=== PATIENT | female | born 1970 | race Caucasian/White ===

== ENCOUNTER 2017-07-14 21:02 | Emergency (ER) | payer OTHER ==
[~2017-07-14] VITALS: Ht 170.2 cm; Wt 82.1 kg
[2017-07-14 21:06] VITALS: Ht 170.2 cm; Wt 82.1 kg
[2017-07-14 23:15] VITALS: BP 127/74
== END 2017-07-14 23:15 | disposition home or self-care (01) ==
LOC: ED 21:02
DX: S39.012A Strain of muscle, fascia and tendon of lower back, initial encounter (principal); S29.012A Strain of muscle and tendon of back wall of thorax, initial encounter; X58.XXXA Exposure to other specified factors, initial encounter; Y93.89 Activity, other specified; Y92.89 Other specified places as the place of occurrence of the external cause; Y99.8 Other external cause status
CPT/HCPCS: J1885

== ENCOUNTER 2017-07-17 23:33 | Emergency (ER) | payer OTHER ==
[~2017-07-17] VITALS: Ht 170.2 cm; Wt 55.8 kg
[2017-07-17 23:38] VITALS: Ht 170.2 cm; Wt 55.8 kg
[2017-07-18 04:45] VITALS: BP 136/78
== END 2017-07-18 04:45 | disposition home or self-care (01) ==
LOC: ED 23:33
DX: B02.9 Zoster without complications (principal); R07.89 Other chest pain; Z88.0 Allergy status to penicillin
CPT/HCPCS: J1885

== ENCOUNTER 2017-07-19 04:17 | Emergency (ER) | payer OTHER ==
[~2017-07-19] VITALS: Ht 170.2 cm; Wt 83.5 kg
[2017-07-19 04:26] VITALS: Ht 170.2 cm; Wt 83.5 kg
[2017-07-19 05:09] VITALS: BP 168/93
== END 2017-07-19 05:09 | disposition home or self-care (01) ==
LOC: ED 04:17
DX: B02.8 Zoster with other complications (principal); G47.9 Sleep disorder, unspecified; Z88.0 Allergy status to penicillin

== ENCOUNTER 2018-06-22 21:01 | Emergency (ER) | payer SELFPAY ==
[~2018-06-22] VITALS: Ht 170.2 cm; Wt 80.3 kg
[2018-06-22 21:16] VITALS: BP 129/100; Ht 170.2 cm; Wt 80.3 kg
== END 2018-06-23 00:27 | disposition home or self-care (01) ==
LOC: ED 21:01
DX: J11.1 Influenza due to unidentified influenza virus with other respiratory manifestations (principal); Z88.0 Allergy status to penicillin
CPT/HCPCS: 87804

== ENCOUNTER 2019-05-12 09:25 | Emergency (ER) | payer SELFPAY ==
[~2019-05-12] VITALS: Ht 165.1 cm; Wt 78.9 kg
[2019-05-12 09:43] VITALS: Ht 165.1 cm; Wt 78.9 kg
[2019-05-12 11:29] LABS: BASOPHIL % 0.3 % (0-2); PLATELET COUNT 275 x10^3mcL (130-400); RED CELL DISTRIBUTION WIDTH 13.8 % (11.5-14.5)
[2019-05-12 11:35] LABS: ALKALINE PHOSPHATASE 79 U/L (46-116); ALT/SGPT 37 U/L (14-59); AST/SGOT 18 U/L (15-37); BILIRUBIN TOTAL 0.2 mg/dL (0.20-1.00); CARBON DIOXIDE 28.3 mmol/L (21-32); CHLORIDE SERUM 104 mmol/L (98-107); CREATININE SERUM 0.6 mg/dL (0.6-1.0); GFR1 > 60 mL/min; GLUCOSE SERUM 106 mg/dL (74-106); POTASSIUM SERUM 4.3 mmol/L (3.5-5.1); SODIUM SERUM 137 mmol/L (136-145); TOTAL PROTEIN, SERUM 6.4 g/dL (6.4-8.2)
[2019-05-12 11:36] LABS: ALBUMIN 3.2 g/dL (3.4-5.0)
[2019-05-12 13:28] VITALS: BP 138/74
== END 2019-05-12 13:28 | disposition home or self-care (01) ==
LOC: ED 09:25
PROVIDERS: Emergency Medicine
DX: B34.9 Viral infection, unspecified (principal); Z88.0 Allergy status to penicillin; Z90.710 Acquired absence of both cervix and uterus
CPT/HCPCS: 36415; 87804; J0780; J1885; Q0163

== ENCOUNTER 2020-02-16 21:47 | Emergency (ER) | payer MEDICAID ==
[~2020-02-16] VITALS: Ht 170.2 cm; Wt 77.1 kg
[2020-02-16 23:08] VITALS: BP 128/82
== END 2020-02-16 23:13 | disposition home or self-care (01) ==
LOC: ED 21:47
DX: J18.1 Lobar pneumonia, unspecified organism (principal); Z88.0 Allergy status to penicillin

== ENCOUNTER 2020-02-18 20:23 | Inpatient (IN) | payer MEDICAID, SELFPAY ==
[~2020-02-18] VITALS: Ht 170.2 cm; Wt 83.0 kg
[2020-02-18 20:25] VITALS: Ht 170.2 cm; Wt 83.0 kg
--- NOTE | 2020-02-18 20:30 | NUR ---
PER KRISTY COPPOLA, NO EKG NECESSARY.
[2020-02-18 21:23] LABS: BASOPHIL % 0.4 % (0-2); PLATELET COUNT 211 x10^3mcL (130-400); RED CELL DISTRIBUTION WIDTH 13.5 % (11.5-14.5)
--- NOTE | 2020-02-18 21:27 | NUR ---
FLU SWAB COLLECTED, ADMINISTEREDIVP MEDICATIONS AND NS INFUSING
[2020-02-18 21:48] LABS: CALCIUM 7.7 mg/dL (8.5-10.1); CARBON DIOXIDE 25.3 mmol/L (21-32); CHLORIDE SERUM 103 mmol/L (98-107); CREATININE SERUM 0.7 mg/dL (0.6-1.0); GFR1 > 60 mL/min; GLUCOSE SERUM 102 mg/dL (74-106); SODIUM SERUM 137 mmol/L (136-145)
[2020-02-18 21:53] LABS: ALBUMIN 2.9 g/dL (3.4-5.0); ALKALINE PHOSPHATASE 90 U/L (46-116); ALT/SGPT 58 U/L (14-59); AST/SGOT 39 U/L (15-37); BILIRUBIN TOTAL 0.42 mg/dL (0.20-1.00); C REACTIVE PROTEIN 5.4 mg/dL (<=0.9); LACTIC DEHYDROGENASE (LDH) 378 U/L (100-190); TOTAL PROTEIN, SERUM 6.6 g/dL (6.4-8.2)
--- NOTE | 2020-02-18 21:56 | NUR ---
ACCIDENTLY PULLED IV OUT, BLEEDING CONTROLLED WITH PRESSURE DRESSING.
--- NOTE | 2020-02-18 21:57 | NUR ---
COVID SWAB AND URINE COLLECTED AND SENT FOR TESTING. HYDRATION RESTARTED.
[2020-02-19] VITALS (7 sets, daily range): BP systolic 102–146; BP diastolic 70–87
[2020-02-19 00:13] LABS: T3 TOTAL 1.52 ng/mL
[2020-02-19 00:20] LABS: MAGNESIUM 1.8 mg/dL (1.8-2.4); PHOSPHOROUS 2.7 mg/dL (2.5-4.9)
[2020-02-19 00:21] LABS: CHOLESTEROL/HDL RATIO 3.3
--- NOTE | 2020-02-19 00:24 | NUR ---
NOTIFIED OF ROOM ASSIGNMENT AND VERBALIZED UNDERSTANDING WHILE ANTIBIOTICS INFUSING.
[2020-02-19 00:30] LABS: FREE T4 1.11 ng/dL (0.76-1.46); FREE THYROXINE INDEX 2.9 ug/dL (1.4-4.5); T4(THYROXINE) 9.3 ug/dL (4.7-13.3)
[2020-02-19] MEDS ORDERED: ULTRAM50 MG (00:37)
--- NOTE | 2020-02-19 01:00 | NUR ---
ADMITTED PT FROM ED WITH DX COVID+/PNEUMONIA.PT A/O X4.DENIES HEADACHE OR DIZZINESS.ON AND OFF DRY COUGHING AND PAIN TO CHEST WHEN COUGHING.PT VERBALIZES SHE'S ANXIOUS AND USUALLY GETS XANAX AT HOME.ALLOWS TO CALM DOWN AND VERBALIZED FEELINGS.STAYED WITH PT AND EDUCATION WITH REGARDS TO COVID PROVIDED.PLACED ON TELE # 24 WITH READING NSR.BP 136/84 MMHG,HR 89.ADMISSION CARE RENDERED.DR. ADAMS MADE AWARE OF ANXIETY AND REQUESTED FOR COUGH MEDICATIONS.WILL CONTINUE TO MONITOR.
--- NOTE | 2020-02-19 07:45 | NUR ---
RECEIVED PT FROM PM NURSE. PT IS AWAKE AND RESTING COMFORTABLY AT THIS TIME. NO FACIAL DISTRESS OR SOB NOTED. PT IS A/OX4. ABLE TO MAKE NEEDS KNOWN. DENIES PEOPLES/DIZZINESS. LUNG SOUNDS DIMINISHED. BREATHING E/U ON RA. DRY COUGHING NOTED. TELE #24. DENIES CP/PRESSURE. PULSES EVEN AND PALPABLE. NO EDEMA NOTED. ACTIVE BSX4. ABD SOFT AND ROUND. NO DIARRHEA REPORTED THIS TIME. BRP. VOIDS FREELY. SKIN INTACT. NO C/O PAIN AT THIS TIME. IV TO RH. SL. FLUSHES WITH NO DIFFICULTY. BED AT LOWEST POSITION. CALL BUTTON WITHIN REACH. DROPLET PRECAUTION OBSERVED AT ALL TIMES. WILL CONTINUE TO MONITOR.
--- NOTE | 2020-02-19 09:02 | NUR ---
PT WANTS TO HAVE OUTSIDE FOOD. DR WILLIAMSON MADE AWARE OF PT'S REQUEST AND SAID IT IS OKAY FOR PATIENT TO HAVE FOOD FROM OUTSIDE.
--- NOTE | 2020-02-19 17:41 | NUR ---
PT C/O NON RADIATING CHEST PAIN 01/13. GAVE NORCO PER EMAR. PT STATES SHE IS ALSO FEELING A LITTLE BIT ANXIOUS. WILL REASSESS AFTER NORCO BEFORE GIVING ATIVAN.
--- NOTE | 2020-02-19 18:32 | NUR ---
ATIVAN GIVEN PER EMAR FOR ANXIETY. WILL ENDORSE CARE TO PM SHIFT FOR CONTINUITY OF CARE.
--- NOTE | 2020-02-19 20:27 | NUR ---
PUT IN ORDER IN [facility] FOR SURVEY RESEARCH TEACHER TOYA PER ,D/C ROCEPHINE,DECADRON AND ZITHROMAX
--- NOTE | 2020-02-19 23:24 | NUR ---
RECEIVED PATIENT IN BED.AWAKE,ALERT,AND ORIENTED.SKIN WARM AND DRY TO TOUCH. ROOM AIR.LUNGS SOUND DIMINISHED UPON AUSCULTATION.ON NSR TELE #24.DENIES CHEST PAIN AND DISCOMFORT.VOIDS FREELY CONTINENTLY,NO EPISODES OF DIARRHEA AT THIS TIME.CALL LIGHT WITHIN REACH.KEPT COMFORTABLY A THIS TIME.
[2020-02-20 05:48] VITALS: BP 121/74
--- NOTE | 2020-02-20 05:48 | NUR ---
PATIENT SLEPT WELL AT NIGHT.DENIES SOB ,NO DISCOMFORT AT THIS TIME.REMAINED NO S/S RESPIRATORY DISTRESS.ON TELE# 24 NSR FOOD AND BEVERAGE DIRECTOR.OCCASIONALLY COUGH NONPRODUCTIVELY,AFEBRILE.CALL LIGHT WITHIN REACH.KEPT COMFORTABLE.
[2020-02-20 06:57] LABS: BASOPHIL % 0.1 % (0-2); PLATELET COUNT 258 x10^3mcL (130-400)
[2020-02-20 07:20] LABS: CALCIUM 7.8 mg/dL (8.5-10.1); CARBON DIOXIDE 28.1 mmol/L (21-32); CHLORIDE SERUM 109 mmol/L (98-107); CREATININE SERUM 0.7 mg/dL (0.6-1.0); GFR1 > 60 mL/min; GLUCOSE SERUM 95 mg/dL (74-106); MAGNESIUM 1.9 mg/dL (1.8-2.4); PHOSPHOROUS 2.7 mg/dL (2.5-4.9); POTASSIUM SERUM 3.5 mmol/L (3.5-5.1); SODIUM SERUM 142 mmol/L (136-145)
[2020-02-20 08:40] VITALS: BP 109/70
--- NOTE | 2020-02-20 10:27 | NUR ---
RECIEVED PT IN A STABLE CONDITION. SHE IS FULL CODE, AAOX4 AND ON ROOM AIR AND DENIES ANY DYSPNEA. NO DYSPNEA NOTED BUT SHE COMPLAINED OF SOME CHEST PAIN AND ANXIETY AND REQUESTED A 7.5MG NORCO WHICH I PROVIDED TO GOOD EFFECT WELL HER PRN ATIVAN 0.5MG. SHE IS ON TELE 24 SHOWING NSR. PULSES PALPABLE AND NO EDEMA NOTED. SHE HAS GENERALIZED WEAKNESS NOTED, AND SHE HAS A RIGHT HAND PERIPHERAL IV IN PLACE. BED IS LOW WITH CALL LIGHT IN REACH. WILL CONTINUE TO MONITOR.
[2020-02-20] MEDS ORDERED: HYDROXYZINE50 M1 PO (11:05)
--- NOTE | 2020-02-20 13:00 | NUR ---
discount pharmacy card and list to low cost medical clinics given to Hair BARKER and he will hand it to patient.
[2020-02-20] MEDS ORDERED: IBU800 M2 PO (13:11)
[2020-02-20 13:15] VITALS: BP 108/64
[2020-02-20 14:56] VITALS: BP 109/70
--- NOTE | 2020-02-20 16:11 | NUR ---
PATIENT REMAINED STABLE THROUGHOUT THE REMAINDER OF THE SHIFT WITH NO SIGNIFICANT CHANGES NOTED. SHE REMAINS ON ROOM AIR AND NO DISTRESS NOTED. ALL INTERVENTIONS CARRIED OUT PER PROTOCOL. PATIENT IS BEING DISCHARGED TO HOME NOW AND IS BEING PICKED UP BY HER JOHN COPPOLA [phone]. ALL DISCHARGE PAPERWORK SIGNED AND FILED ACCORDINGLY AND ALL TEACHING PROVIDED.
== END 2020-02-20 16:29 | disposition home or self-care (01) | DRG 720 ==
LOC: ED 20:23 → DU 21:46
PROVIDERS: Emergency Medicine; ADMIT Internal Medicine; ATTEND Internal Medicine
DX: A41.89 Other specified sepsis (principal); U07.1 COVID-19; E44.0 Moderate protein-calorie malnutrition; E72.20 Disorder of urea cycle metabolism, unspecified; I49.5 Sick sinus syndrome; I48.20 Chronic atrial fibrillation, unspecified; E83.51 Hypocalcemia; J12.89 Other viral pneumonia; E88.09 Other disorders of plasma-protein metabolism, not elsewhere classified; D72.819 Decreased white blood cell count, unspecified; Z79.01 Long term (current) use of anticoagulants; Z88.0 Allergy status to penicillin; Z95.0 Presence of cardiac pacemaker
CPT/HCPCS: 36600; 83880; 84439; 85378; 87804; G0378; J0456; J0696; J1100; J1650; J1885; J2405; J3535; J7030; J7050; J7060; Q0177; U0003